=== PATIENT | male | born 1950 | race Caucasian/White ===

== ENCOUNTER 2017-02-09 12:06 | Emergency (ER) | payer OTHER ==
--- NOTE | ~2017-02-09 | CR72 ---
[facility] A Service of [facility] RADIOLOGY TEXT RESULTS PATIENT: FRANCISCO MENDEZ LOCATION: [facility] : 50 UNIT #: [id number] AGE: [address]: Marcio Sanz MD SEX: M ORDER DR: [id number] [facility] [address]. [place], [place] [address] [id number] E MR#: [id number] Acc #: [id number] NAME: FRANCISCO MENDEZ : 1950 SEX: M STUDY DATE/TIME: 02/09/2017 12:59 UNIT: [facility] ROOM: STUDY DESCRIPTION: CR Chest Single View Portable Attending Physician: Marcio Sanz M.D. Ordering Physician: Marcio Sanz M.D. Primary Care Physician: Joe Marroquin Jr., M.D. MEDICAL IMAGING REPORT This report is preliminary unless electronic signature is present EXAM Portable chest 02/09/2017 HISTORY Fever and shortness of breath for 2 days. FINDINGS A single AP portable view of the chest shows both lungs to be clear. The heart is normal in size. The mediastinal contour is normal. No significant bone abnormalities are seen. IMPRESSION Normal portable chest. Dictated by... Chirag Degroot M.D. THIS IS AN ELECTRONICALLY VERIFIED REPORT Chirag Degroot M.D. at 02/10/2017 8:08 AM TARI/[email or web address] TD: 02/09/2017 13:27 JOB #: [id number] MEDICAL IMAGING REPORT Page 1 of 1 COPY
--- NOTE | ~2017-02-09 | EKG ---
PATIENT: FRANCISCO MENDEZ UNIT #: [id number] Ventricular Rate: 68 BPM Atrial Rate: 68 BPM P-R Interval: 136 ms QRS Duration: 84 ms Q-T Interval: 442 ms QTC Calculation(Bezet): 469 ms P [place]: 63 degrees Calculated R [place]: 7 degrees Calculated T [place]: 56 degrees Diagnosis Line: Normal sinus rhythm Diagnosis Line: Normal ECG Diagnosis Line: When compared with ECG of 11-OCT-2015 05:56, Diagnosis Line: Nonspecific T wave abnormality no longer evident Diagnosis Line: in Inferior leads Diagnosis Line: Confirmed by YUMIKO RIVERA MD ([id number]) on Diagnosis Line: 02/09/2017 10:51:03 PM INTERPRETING MD: IAN
--- NOTE | ~2017-02-09 | CR6 ---
[facility] A Service of [facility] RADIOLOGY TEXT RESULTS PATIENT: FRANCISCO MENDEZ LOCATION: [facility] : 50 UNIT #: [id number] AGE: [address]: Marcio Sanz MD SEX: M ORDER DR: [id number] [facility] [address] [place], [place] [address] [id number] E MR#: [id number] Acc #: [id number] NAME: FRANCISCO MENDEZ : 1950 SEX: M STUDY DATE/TIME: 02/09/2017 15:56 UNIT: [facility] ROOM: STUDY DESCRIPTION: CR Abdomen Portable Sng View Attending Physician: Marcio Sanz M.D. Ordering Physician: Marcio Sanz M.D. Primary Care Physician: Joe Marroquin Jr., M.D. MEDICAL IMAGING REPORT This report is preliminary unless electronic signature is present EXAM Portable abdomen, 02/09/2017 HISTORY 66-year-old male with abdominal pain today. G-tube replacement today. COMPARISON Abdomen, 07/02/2016 FINDINGS Frontal supine abdomen was performed following the injection of 60 mL Gastrografin contrast through the patient's indwelling G-tube. There is contrast opacifying the stomach suggesting satisfactory position of the G-tube. Bowel gas pattern is nonobstructive. IMPRESSION Gastrografin and contrast fills the stomach following injection through the indwelling G-tube, suggesting satisfactory positioning. Dictated by... Benny Alberto M.D. THIS IS AN ELECTRONICALLY VERIFIED REPORT Benny Alberto M.D. at 02/09/2017 6:11 PM Jeevan TD: 02/09/2017 16:57 JOB #: [id number] MEDICAL IMAGING REPORT Page 1 of 1 COPY
[~2017-02-09 12:06] MED LIST: ACETAMINOPHEN PEG; ACTOS PO; AMLODIPINE BESYL5 MG PO; AMOXICILLIN500 M1 PO; AMOXICILLIN875 MG PO; ATENOLOL PO; ATORVASTATIN CA80 MG PO; AUGMENTIN875 MG PO; AVODART0.5 MG PO; BACTRIM DS TABL1 TA2 PO; CELEXA20 MG PEG; CELEXA20 MG PO; CHOLESTIN PO; CIPRO PO; CIPRO XR 500 M500 MG PEG; CLOPIDOGREL75 MG PO; COLISTIN IV; COUMADIN5 MG PO; DISCONTINUED MED; FLEXERIL PO; FLOMAX0.4 M1 PEG; FLOMAX0.4 M1 PO; FOLIC ACID PEG; GLUCERNA 1.21500 ML PEG; HCTZ PO; HUMALOG100 U/ML SUBQ; KEPPRA500 M1 PO; KEPPRA500 MG PO; KEPPRA750 M1 PEG; KEPPRA750 M1 PO; LANTUS SOLOSTAR3 ML INJ; LANTUS100 U/ML SUBQ; LANTUS100 UNITS/ SUBQ; LEVETIRACETAM500 MG PO; LEVOTHYROXINE25 MC1 PEG; LIOTHYRONINE S25 MCG PO; LISINOPRIL10 MG PO; LISINOPRIL20 MG PO; LISINOPRIL5 MG PEG; LO-DOSE ASPIRIN81 M1 PEG; LOPRESSOR PO; LOTREL 10/20 MG1 CAP PO; LOVENOX SQ; MERREM1 G/VIA1 IV; MERREM500 MG INJ; METFORMIN PO; METOPROLOL TAR25 MG PEG; MILK OF MAGNESIA PEG; NAPROSYN500 MG PO; NORCO 7.5-3251 EACH PO; NORVASC2.5 MG PEG; NOVOLOG100 U/M2; NOVOLOG100 U/ML SUBQ; NOVOLOG100 UNITS/ INJ; PEPCID PEG; PLAVIX PO; REMERON15 MG PEG; REMERON15 MG PO; SERTRALINE HCL100 MG PO; SIMVASTATIN20 MG PO; SIMVASTATIN40 MG PO; ST. JOSEPH ASP325 MG PEG; SYNTHROID PO; ZESTRIL10 MG PO; ZOCOR PO; ZOLOFT100 MG PO; [UNRECOGNIZED DRUG - OTHER] PEG
[2017-02-09 14:17] LABS: BASOPHIL% 0.4 % (0-2.5); EOSINOPHIL# 0.2 X10e3 (0-0.7); EOSINOPHIL% 2.4 % (0.0-7.0); HEMATOCRIT 45.9 % (38.0-50.0); HEMOGLOBIN 15.1 gm/dL (13.0-16.0); LYMPHOCYTE# 0.9 X10e3 (1.0-3.5); LYMPHOCYTE% 9.2 % (17.0-45.0); MEAN CELL VOLUME 104.8 FL (83-96); MEAN CORPUSCULAR HEMOGLOBIN 34.5 PG (28-34); MEAN CORPUSCULAR HGB CONC 32.9 g/dL (30-36); MONOCYTE# 0.7 X10e3 (0-1.0); MONOCYTE% 7.5 % (3.0-12.0); NEUTROPHIL# 7.6 X10e3 (1.5-7.1); NEUTROPHIL% 80.5 % (40-75); PLATELET COUNT 108 X10e3 (140-420); RED BLOOD COUNT 4.38 X10e (3.90-5.60); RED CELL DISTRIBUTION WIDTH 13.1 % (11.0-15.5); WHITE BLOOD COUNT 9.4 X10e3 (4.0-10.5)
[2017-02-09 14:21] LABS: DIFF IND YES
[2017-02-09 14:25] LABS: INR 1.1; PARTIAL THROMBOPLASTIN TIME 27.5 SECONDS (23.5-31.3); PROTHROMBIN TIME (PATIENT) 11.8 SECONDS (10.0-11.7)
[2017-02-09 14:38] LABS: PLATELET ESTIMATE NORMAL (NORMAL)
[2017-02-09 14:39] LABS: MICROCYTOSIS SL
[2017-02-09 14:45] LABS: ALBUMIN SERUM 3.6 g/dL (3.5-5.0); BILIRUBIN, DIRECT 0.2 mg/dL (0.0-0.2); BILIRUBIN,INDIRECT 0.9 mg/dL (0.0-0.9); BILIRUBIN,TOTAL 1.1 mg/dL (0.2-2.0); CALCIUM SERUM 9.1 mg/dL (8.4-10.2); GLOM FILT RATE Estimated 78.1 mL/min (>60); POTASSIUM 4.4 mmol/L (3.5-5.1); PROTEIN TOTAL SERUM 7.2 g/dL (6.0-8.3)
== END 2017-02-09 18:16 | disposition home or self-care (01) ==
LOC: CED 12:06
PROVIDERS: Emergency Medicine
DX: K94.23 Gastrostomy malfunction (principal); Z79.82 Long term (current) use of aspirin; Z79.899 Other long term (current) drug therapy; Z88.2 Allergy status to sulfonamides; Z88.1 Allergy status to other antibiotic agents
CPT/HCPCS: 36415; 43760; 71010; 74000; 80048; 80076; 83605; 83690; 85025; 85610; 85730; 87040; 93005; 99284